=== PATIENT | female | born 2000 | race Caucasian/White ===

== ENCOUNTER 2020-01-14 05:47 | Emergency (ER) | payer OTHER ==
--- NOTE | 2020-01-14 06:18 | ER Document Report ---
ED Psych Disorder / Suicide - General Chief Complaint: Suicidal Ideation Stated Complaint: PSYCH Time Seen by Provider: 01/14/20 05:55 Notes: Patient is a 19-year-old female that comes to the emergency department for chief complaint of suicidal ideations and a suicide attempt. Patient states that she was drinking alcohol, became extremely frustrated and angry during an argument with her , she states she took a bottle of wine and threw it against a mirror which shattered, she states after this she picked up a glass and attempted to slit her throat with the glass shard. She states that she was not successful and she attempted again without success. She states afterwards she felt guilty, cleaned up the glass, told her what she had done, and he called 911. She states she feels depressed and anxious frequently, she has just started seeing a therapist but she is not on any medications. Patient is currently active duty. Patient us up to date on vaccinations. - Related Data Allergies/Adverse Reactions: No Known Allergies Allergy (Unverified 01/14/20 06:31) Past Medical History - General Information source: Patient - Social History Smoking Status: Former Smoker Chew tobacco use (# tins/day): No Frequency of alcohol use: Heavy Drug Abuse: None Lives with: Spouse/Significant other Family History: Reviewed & Not Pertinent Patient has suicidal ideation: Yes Patient has homicidal ideation: No Psychiatric Medical History: Reports: Hx Anxiety, Hx Depression Surgical Hx: Negative - Immunizations Immunizations up to date: Yes Hx Diphtheria, Pertussis, Tetanus Vaccination: Yes Review of Systems - Review of Systems Constitutional: No symptoms reported EENT: No symptoms reported Cardiovascular: No symptoms reported Respiratory: No symptoms reported Gastrointestinal: No symptoms reported Genitourinary: No symptoms reported Female Genitourinary: No symptoms reported Musculoskeletal: No symptoms reported Skin: See HPI Hematologic/Lymphatic: No symptoms reported Neurological/Psychological: See HPI Physical Exam - Vital signs Vitals: Temp Pulse Resp BP Pulse Ox 97.9 F 102 H 18 131/70 H 100 01/14/20 05:51 01/14/20 05:51 01/14/20 05:51 01/14/20 05:51 01/14/20 05:51 - Notes Notes: GENERAL: Alert, cooperative, very tearful and forlorn HEAD: Normocephalic, atraumatic. EYES: Pupils equal, round, and reactive to light. Extraocular movements intact. ENT: Oral mucosa moist, tongue midline. Oropharynx unremarkable. Airway patent. NECK: There are superficial scratches that are just into the epidermis consistent with self-inflicted wounds over the anterior neck in the midline but there is no significant wound, there is no current bleeding, there is no swelling or ecchymosis. There is no tenderness with palpation of the area. Patient swallows without difficulty. Full range of motion. Supple. Trachea midline. LUNGS: Clear to auscultation bilaterally, no wheezes, rales, or rhonchi. No respiratory distress. HEART: Regular rate and rhythm. No murmur ABDOMEN: Soft, non-tender. Non-distended. EXTREMITIES: Moves all 4 extremities spontaneously. No edema, normal radial and dorsalis pedis pulses bilaterally. No cyanosis. BACK: no cervical, thoracic, lumbar midline tenderness. No saddle anesthesia, normal distal neurovascular exam. Moves all extremities in full range of motion. NEUROLOGICAL: Alert and oriented x3. Normal speech. Cranial nerves II through XII grossly intact. PSYCH: Frequently cries. Cooperative, makes eye contact SKIN: Warm, dry, normal turgor. No rashes or lesions noted. Course - Re-evaluation Re-evalutation: Patient is tearful, appears to have attempted to hurt herself but has only performed very superficial wounds with no significant swelling, no bleeding, no repair required. There is not appear to be any significant injury to the neck. Initially work-up was planned, however patient is active duty, I discussed options, she elects to go to the [facility] for treatment as is usual in this situation. We called the transfer center at [facility], they recommended we call command, we called her command after disussing with patient and she consented/agreed, they arrived to have the patient discharged to them so they can take her to [facility]. I did discuss this with the charge nurse, nursing supervisor respiratory, and with our mental health team. Patient states appreciation and agreement with plan. Discharged to her commands to be transported to [facility] for care for her mental health. - Vital Signs Vital signs: Temp Pulse Resp BP Pulse Ox 97.9 F 102 H 18 131/70 H 100 01/14/20 05:51 01/14/20 05:51 01/14/20 05:51 01/14/20 05:51 01/14/20 05:51 Discharge - Discharge Clinical Impression: Suicide attempt, Suicidal ideations Depression Qualifiers: Depression Type: unspecified Qualified Code(s): F32.9 - Major depressive disorder, single episode, unspecified Condition: Stable Disposition: [facility] Additional Instructions: Please proceed to the [facility] for evaluation and management for suicidal ideation/attempt.
[2020-01-14 07:56] VITALS: BP 103/61
== END 2020-01-14 07:52 ==
LOC: ER 05:47
DX: S10.90XA Unspecified superficial injury of unspecified part of neck, initial encounter (principal); F10.10 Alcohol abuse, uncomplicated; F32.9 Major depressive disorder, single episode, unspecified; R45.4 Irritability and anger; F41.9 Anxiety disorder, unspecified; X78.0XXA Intentional self-harm by sharp glass, initial encounter; Z87.891 Personal history of nicotine dependence
CPT/HCPCS: 99284